=== PATIENT | male | born 1970 | race Caucasian/White ===

== ENCOUNTER → 2017-07-10 | Outpatient (CLI) | payer OTHER | END | disposition home or self-care (01) | LOC: PPH VACUNA 09:01 | DX: Z23 Encounter for immunization (principal) ==

== ENCOUNTER 2020-03-30 10:00 | Outpatient (CLI) | payer OTHER | END 2020-03-30 15:47 | disposition home or self-care (01) | LOC: PPH VACUNA 10:00 | DX: Z23 Encounter for immunization (principal) ==

== ENCOUNTER 2022-03-14 08:00 | Outpatient (CLI) | payer OTHER | END 2022-03-14 08:05 | disposition home or self-care (01) | LOC: PPH VACUNA 08:00 | PROVIDERS: ATTEND Emergency Medicine Pediatric Emergency Medicine | DX: Z23 Encounter for immunization (principal) ==